=== PATIENT | male | born 1990 | race Caucasian/White ===

== ENCOUNTER 2021-01-03 12:43 | Inpatient (IN) | payer BC, SELFPAY ==
[2021-01-03] VITALS (8 sets, daily range): BP systolic 120–147; BP diastolic 77–98; PULSE 74–135; RESP 12–18; TEMP 36.6–36.9; O2SAT 96–100; BMI 32.5
--- NOTE | ~2021-01-03 | XR_ITS ---
EXAMINATION: XR CHEST CLINICAL INFORMATION: Leukocytosis COMPARISON: None TECHNIQUE: 2 views of the chest were obtained. FINDINGS: Cardiac silhouette is normal in size. The lungs are adequately aerated. There is mild asymmetrical elevation right hemidiaphragm. No lobar consolidation. No pleural effusion or pneumothorax. No acute osseous abnormality. XR/XR chest 2V IMPRESSION: No acute pulmonary pathology.
--- NOTE | 2021-01-03 14:03 | ED_ITS ---
HPI - General Adult General Chief complaint: Nausea/Vomiting/Diarrhea Stated complaint: muscle pain Time Seen by Provider: 01/03/21 13:46 Source: patient Mode of arrival: ambulatory Limitations: no limitations History of Present Illness HPI narrative: 30-year-old male previously healthy here with complaints of gener alized weakness, muscle pain, cramps, nausea, vomiting since yesterday. Patient tells me that yesterday he was on the elliptical for about an hour and then went for a 2-3 mile walk (total work out time approximately 4hrs) On the way home from his walk he started to feel weak and had an episode of vomiting. He has had several episodes of vomiting since. He feels like his muscles are sore and cramping. Denies abdominal pain, diarrhea. Related Data Home Medications Medication Instructions Recorded Confirmed No Known Home Meds 01/03/21 01/03/21 Allergies Allergy/AdvReac Type Severity Reaction Status Date / Time DUST Allergy Unknown SNEEZING, Uncoded 06/26/20 15:55 RED EYES Review of Systems Review of Systems: Yes all other systems are reviewed and are negative Constitutional: Constitutional: Reports no additional constitutional complaints, Denies body ache(s), Denies chills, Denies fever(s), Denies heada charlene(s) and Reports weakness Eyes: Eyes: Reports no additional eye complaints and Denies change in vision ENT: Reports system reviewed and no additional complaints, except as documented, Denies dizziness, Denies headache(s), Denies nasal congestion, Denies nasal discharge and Denies neck pain Cardiovascular: Cardiovascular: Reports no additional cardiovascular complaints, Denies chest pain, Denies leg edema and Denies dyspnea Respiratory: Respiratory: Reports no additional respiratory complaints, Denies cough and Denies dyspnea Gastrointestinal: Gastrointestinal: Reports no additional gastrointestinal complaints, Denies abdominal pain, Denies diarrhea, Reports nausea and Reports vomiting Genitourinary: Genitourinary: Denies urinary incontinence Musculoskeletal: Musculoskeletal: Reports no additional musculoskeletal complaints, Denies back pain, Denies arthralgias, Denies joint swelling, Reports muscle cramps, Denies neck pain, Denies numbness and Denies tingling Integumentary/Breasts: Skin/Breast: Reports system reviewed and no additional complaints, except as docu and Denies rash Neurologic: Reports system reviewed and no additional complaints, except as documented, Denies Abnormal speech present, Denies dizziness, Denies headache(s), Denies numbness, Denies tingling and Reports weakness PMFSH Past Medical History Attestation statement: The following information was validated with the patient. Source: old records reviewed and nursing notes reviewed Medical History Asthma Social History Social History Alcohol intake: never Smoking Status: Never smoker Use of substances other than those prescribed or required for medical reasons: No Advance Directives: No Advance Directives Information Provided: Yes Physical Exam Vital Signs: Vital Signs: Last Vital Signs Temp 98.1 F 01/03/21 14:20 Pulse 74 01/03/21 17:43 Resp 16 01/03/21 17:43 BP 131/98 H 01/03/21 17:43 Pulse Ox 98 01/03/21 17:43 Body Mass Index 32.5 Const: General: cooperative, healthy appearing, comfortable and no acute distress Orientation/consciousness: patient oriented x3 Limitations: no l imitations HENMT: Head: Yes normal to inspection Ears: hearing grossly normal bilaterally General nose exam: Normal external nose present Face and sinus: Yes normal facial exam Mouth: Normal oral and palatal mucosa present Throat: Yes posterior oropharynx normal Eyes: General: appearance normal, both eyes and all related structures Pupils: Equal, round and reactive pupils present Neck: Neck: Yes normal visual inspection Chest: Chest palpation & inspection: normal inspection of the chest Resp: Effort & Inspection: normal respiratory effort Auscultation: clear to auscultation bilaterally Cardio: Rate: regular rate Rhythm: regular rhythm Peripheral pulses: Peripheral pulses 2+ throughout GI: Inspection: Yes normal to inspection Palpation (GI): Soft to palpation and nontender Auscultation: normal bowel sounds Back/Spine/Pelvis: Thoracic/Lumbar Spine: thoracic and lumbar spine normal to inspection Skin: General skin exam: no rashes or lesions noted Neuro: General: patient oriented x3, no focal motor deficits and normal sensation to monofilament Cranial nerves: Yes Equal, round and reactive pupils present Cognition (Neuro): normal cognition Speech: No Abnormal speech present Gait exam (Neuro): Normal gait present Motor exam (neuro): 5/5 motor strength present throughout Extrem: General: Yes normal to inspection Course Course Course Narrative: 30-year-old male here with nausea, vomiting, generalized weakness, muscle cramps after working out yesterday. No abdominal pain, abdomen soft and benign. Will need labs, UA, orthostatics, EKG. 1620-+orthostatics. Leukocytosis likely secondary to dehydration and vomiting. However, will add blood cultures, lactic acid, CXR, COVID screen. Acute renal failure, elevated CK consistent with rhabdomyolysis. Likely from exertion. Wi ll add a drug screen. NSB ordered. 1630-discussed with medicine team Dr. Braga who tells me patient will be admitted when there is available staff to admit. 1930-Discussed with Dr Astudillo who will accept admission. Medical Decision Making MDM Narrative Medical decision making narrative: Rhabdomyolysis, dehydration, electrolyte abnormality Medical Records Medical records reviewed: Yes I reviewed the patient's medical records. Lab Data Lab results reviewed: Yes I reviewed the patient's lab results. Result diagrams: 01/03/21 15:21 01/03/21 15:21 Labs: Lab Results 01/03/21 01/03/21 01/03/21 Range/Units 15:21 15:21 16:02 WBC 33.5 H* (4.8-10.8) X10*3/uL RBC 5.75 (4.60-5.80) X10*6/uL Hgb 17.9 (14.0-18.0) g/dl Hct 51.0 (42-52) % MCV 88.7 (80-98) fL MCH 31.1 (27.0-33.0) pg MCHC 35.1 (31.0-36.0) g/dl RDW 12.7 (11.0-16.0) % Plt Count 338 (160-400) X10*3/uL MPV 11.3 (9.4-12.4) fL Immature Gran % (Auto) 0.8 H (0.0-0.4) % Neut % (Auto) 87.1 H (45-73) % Lymph % (Auto) 4.3 L (20-40) % [place] % (Auto) 7.6 (2-11) % Eos % (Auto) 0.0 (0-4) % Baso % (Auto) 0.2 (0-2) % Lymph # (Auto) 1.4 (1.2-4.9) X10*3/uL [place] # (Auto) 2.6 H (0.1-1.2) X10*3/uL Eos # (Auto) 0.0 (0.0-0.4) X10*3/uL Baso # (Auto) 0.1 (0.0-0.2) X10*3/uL Abs Immat Gran (auto) 0.28 H (0.00-0.03) X10*3/uL Absolute Neuts (auto) 29.1 H (2.0-8.3) X10*3/uL Absolute Nucleated RBC 0.000 (0.0-0.012) X10*3/uL Nucleated RBC % (auto) 0.0 (0.0-0.2) /100WBC Smear Tech's Comments VERIFIED Sodium 136 (135-145) mmol/L Potassium 4.3 (3.3-5.1) mmol/L Chloride 91 L (96-108) mmol/L Carbon Dioxide 18 L (22-29) mmol/L Anion Gap 31 H (12-20) BUN 42 H (9-16) mg/dL Creatinine 4.06 H* (0.5-1.4) mg/dL Estim Creat Clear Calc 33.5 Estimated GFR 17 Random Glucose 145 H (60-115) mg/dL Lactic Acid 2.4 H* (0.5-2.0) mmol/L Calcium 12.2 H (8.4-10.2) mg/dL Magnesium 2.9 H (1.6-2.6) mg/dL Total Bilirubin 1.5 H (0.0-1.0) mg/dL Direct Bilirubin 0.4 (0.0-0.5) mg/dL AST 149 H (5-37) U/L ALT 42 H (0-40) U/L Alkaline Phosphatase 86 (39-117) U/L Total Creatine Kinase 9806 H (38-174) U/L Total Protein 10.1 H (6.5-8.0) g/dL Albumin 5.8 H (3.5-5.0) g/dL Lipase 17 (8-78) U/L Urine Color Urine Appearance Urine pH (5.0-8.0) Ur Specific [place] (1.005-1.025) Urine Protein (NEG-TRACE) MG/DL Urine Glucose (UA) (NEG) MG/DL Urine Ketones (NEG) MG/DL Urine Blood (NEG) Urine Nitrite (NEG) Ur Leukocyte Esterase (NEG) Urine RBC (0) /HPF Urine WBC (0-4) /HPF Ur Squamous Epith Cells /LPF Calcium Oxalate Crystal /LPF Urine Bacteria /LPF Hyaline Casts /LPF Granular Casts /LPF Urine Opiates Screen (Not Detect) Ur Barbiturates Screen (Not Detect) Ur Phencyclidine Scrn (Not Detect) Ur Amphetamines Screen (Not Detect) U Benzodiazepines Scrn (Not Detect) Urine Cocaine Screen (Not Detect) U Marijuana (THC) Screen (Not Detect) COVID-19 (SHAWN) (Negative) COVID-19 Clin Com 01/03/21 01/03/21 01/03/21 Range/Units 16:02 18:53 18:57 WBC (4.8-10.8) X10*3/uL RBC (4.60-5.80) X10*6/uL Hgb (14.0-18.0) g/dl Hct (42-52) % MCV (80-98) fL MCH (27.0-33.0) pg MCHC (31.0-36.0) g/dl RDW (11.0-16.0) % Plt Count (160-400) X10*3/uL MPV (9.4-12.4) fL Immature Gran % (Auto) (0.0-0.4) % Neut % (Auto) (45-73) % Lymph % (Auto) (20-40) % [place] % (Auto) (2-11) % Eos % (Auto) (0-4) % Baso % (Auto) (0-2) % Lymph # (Auto) (1.2-4.9) X10*3/uL [place] # (Auto) (0.1-1.2) X10*3/uL Eos # (Auto) (0.0-0.4) X10*3/uL Baso # (Auto) (0.0-0.2) X10*3/uL Abs Immat Gran (auto) (0.00-0.03) X10*3/uL Absolute Neuts (auto) (2.0-8.3) X10*3/uL Absolute Nucleated RBC (0.0-0.012) X10*3/uL Nucleated RBC % (auto) (0.0-0.2) /100WBC Smear Tech's Comments Sodium (135-145) mmol/L Potassium (3.3-5.1) mmol/L Chloride (96-108) mmol/L Carbon Dioxide (22-29) mmol/L Anion Gap (12-20) BUN (9-16) mg/dL Creatinine (0.5-1.4) mg/dL Estim Creat Clear Calc Estimated GFR Random Glucose (60-115) mg/dL Lactic Acid (0.5-2.0) mmol/L Calcium (8.4-10.2) mg/dL Magnesium (1.6-2.6) mg/dL Total Bilirubin (0.0-1.0) mg/dL Direct Bilirubin (0.0-0.5) mg/dL AST (5-37) U/L ALT (0-40) U/L Alkaline Phosphatase (39-117) U/L Total Creatine Kinase (38-174) U/L Total Protein (6.5-8.0) g/dL Albumin (3.5-5.0) g/dL Lipase (8-78) U/L Urine Color YELLOW Urine Appearance CLEAR Urine pH 5.5 (5.0-8.0) Ur Specific [place] >= 1.030 H (1.005-1.025) Urine Protein 2+ H (NEG-TRACE) MG/DL Urine Glucose (UA) NEG (NEG) MG/DL Urine Ketones 15 (NEG) MG/DL Urine Blood 3+ H (NEG) Urine Nitrite NEG (NEG) Ur Leukocyte Esterase NEG (NEG) Urine RBC 1-4 (0) /HPF Urine WBC 0-2 (0-4) /HPF Ur Squamous Epith Cells TRACE /LPF Calcium Oxalate Crystal TRACE /LPF Urine Bacteria 1+ /LPF Hyaline Casts 0-2 /LPF Granular Casts 0-2 /LPF Urine Opiates Screen Not Detected (Not Detect) Ur Barbiturates Screen Not Detected (Not Detect) Ur Phencyclidine Scrn Not Detected (Not Detect) Ur Amphetamines Screen Not Detected (Not Detect) U Benzodiazepines Scrn Not Detected (Not Detect) Urine Cocaine Screen Not Detected (Not Detect) U Marijuana (THC) Screen POSITIVE H (Not Detect) COVID-19 (SHAWN) Negative (Negative) COVID-19 Clin Com See Note Imaging Data Chest x-ray: Attestation: I personally reviewed and interpreted this imaging study as follows: Radiologist's impression: EXAMINATION: XR CHEST CLINICAL INFORMATION: Leukocytosis COMPARISON: None TECHNIQUE: 2 views of the chest were obtained. FINDINGS: Cardiac silhouette is normal in size. The lungs are adequately aerated. There is mild asymmetrical elevation right hemidiaphragm. No lobar consolidation. No pleural effusion or pneumothorax. No acute osseous abnormality. XR/XR chest 2V IMPRESSION: No acute pulmonary pathology. ECG Data Attestation: I personally reviewed and interpreted this ECG as follows: Interpretation: Normal sinus rhythm with a rate of 78, normal DC, normal QRS, normal QT Discharge Plan Discharge Clinical Impression: Acute renal failure, Acute renal failure due to rhabdomyolysis, Leukocytosis Patient Disposition: Admitted As Inpatient
[2021-01-03 15:29] LABS: Basophils Absolute Auto 0.1 X10*3/uL (0.0-0.2); Basophils Percent Auto 0.2 % (0-2); Hemoglobin 17.9 g/dl (14.0-18.0); Imm Gran Pct Auto 0.8 % (0.0-0.4); MANUAL DIFF FLAG SCAN; SCAN SMEAR FLAG 1
[2021-01-03 15:37] LABS: Imm Gran Abs Auto 0.28 X10*3/uL (0.00-0.03); Lymphocytes Absolute Auto 1.4 X10*3/uL (1.2-4.9); Lymphocytes Percent Auto 4.3 % (20-40); Mean Corpuscular HGB Conc 35.1 g/dl (31.0-36.0); Mean Corpuscular Hemoglobin 31.1 pg (27.0-33.0); Mean Corpuscular Volume 88.7 fL (80-98); Mean Platelet Volume 11.3 fL (9.4-12.4); Monocytes Absolute Auto 2.6 X10*3/uL (0.1-1.2); Monocytes Percent Auto 7.6 % (2-11); Neutrophils Absolute Auto 29.1 X10*3/uL (2.0-8.3); Neutrophils Percent Auto 87.1 % (45-73); Platelet Count 338 X10*3/uL (160-400); Red Blood Count 5.75 X10*6/uL (4.60-5.80); Red Cell Distribution Width 12.7 % (11.0-16.0)
[2021-01-03 15:41] LABS: White Blood Count 33.5 X10*3/uL (4.8-10.8)
[2021-01-03 15:49] LABS: SLIDE REVIEW VERIFIED
[2021-01-03] MEDS: 0.9 % Sodium Chloride 2,500 ML 999 ML IV (15:52)
[2021-01-03] MEDS: ondansetron HCL 4 MG/2 ML VIAL IVPUSH (15:52)
[2021-01-03 16:08] LABS: Alanine Aminotransferase 42 U/L (0-40); Albumin Level 5.8 g/dL (3.5-5.0); Alkaline Phosphatase 86 U/L (39-117); Anion Gap 31 (12-20); Aspartate Amino Transferase 149 U/L (5-37); Bilirubin Direct 0.4 mg/dL (0.0-0.5); Bilirubin Total 1.5 mg/dL (0.0-1.0); Blood Urea Nitrogen 42 mg/dL (9-16); Calcium 12.2 mg/dL (8.4-10.2); Carbon Dioxide 18 mmol/L (22-29); Chloride 91 mmol/L (96-108); Creatinine Clr Calc Pharmacy 33.5; Estimated Glomerular Filt Rate 17; Glucose Random 145 mg/dL (60-115); Lipase 17 U/L (8-78); Magnesium 2.9 mg/dL (1.6-2.6); Potassium 4.3 mmol/L (3.3-5.1); Sodium 136 mmol/L (135-145); Total Protein 10.1 g/dL (6.5-8.0)
--- NOTE | 2021-01-03 16:11 | PC.NURSE ---
Pt reports vomiting x 2 days and body pain. Skin is reddend, sun burned. Pt at times diaphoretic with vomiting episodes. Medicated as charted.
[2021-01-03 16:27] LABS: COVID-19 Test Negative (Negative); IDNOW Serial# 9DD0AD1C
[2021-01-03 16:53] LABS: Lactic Acid 2.4 mmol/L (0.5-2.0)
--- NOTE | 2021-01-03 17:52 | PC.NURSE ---
Pt feeling better, no longer daphoretic but vomiting approx 20 min ago. Pt also reporting heartburn, pepcid to be ordered. Pt did not void at this time, bladder scan showing 70ml. Plan to complete all 2500ml and then bladder scan again if pt unable to void in urinal.
[2021-01-03 18:07] LABS: Reflex Lactate? Lactic Acid Added
[2021-01-03] MEDS: Famotidine/PF 20 MG/2 ML VIAL IVPUSH (18:13)
--- NOTE | 2021-01-03 19:02 | PC.NURSE ---
Pt voided about 200 ml of urine into urinal
[2021-01-03 19:09] LABS: Glucose Urine UA NEG (NEG); Leukocyte Esterase Urine NEG (NEG); Nitrite Urine NEG (NEG); PH 5.5 (5.0-8.0); Specific Gravity - Urine >= 1.030 (1.005-1.025); Urine Blood 3+ (NEG); Urine Ketones 15 MG/DL (NEG); Urine Protein 2+ MG/DL (NEG-TRACE)
[2021-01-03 19:17] LABS: ~Lactic Acid-LAB USE ONLY 1.3 mmol/L (0.5-2.0)
[2021-01-03 19:17] LABS: Appearance Urine CLEAR; Color Urine YELLOW
[2021-01-03 19:24] LABS: Amphetamine Screen Urine Not Detected (Not Detect); Barbiturates, Urine Not Detected (Not Detect); Benzodiazepines Screen Urine Not Detected (Not Detect); Cannabinoid Screen Urine POSITIVE (Not Detect); Cocaine Screen Urine Not Detected (Not Detect); Opiate Screen Urine Not Detected (Not Detect); Phencyclidine Screen Urine Not Detected (Not Detect)
[2021-01-03 19:30] LABS: WBC Urine 0-2 /HPF (0-4)
[2021-01-03 19:31] LABS: Bacteria Urine 1+ /LPF; Calcium Oxalate Crystals Urine TRACE /LPF; Granular Casts Urine 0-2 /LPF; Hyaline Casts Urine 0-2 /LPF; Squamous Epithelial Cell Urine TRACE /LPF
--- NOTE | 2021-01-03 20:18 | PM.IMHP ---
History of Present Illness Date of Service: 01/03/21 Chief Complaint: Lightheadedness, vomiting, muscle spasm This is a 30-year-old male with no significant past medical history who presents to the hospital with complaints of muscle spasm dizziness, and vomiting. Patient reports that his symptoms started the day prior to presentation, after he worked out about 4 days with very minimal water intake. He usually does not work every day, yesterday was feeling good and worked up for 4 hours straight. He started developing muscle spasm, attention, and cramping, is also lightheadedness, nausea and vomiting, no diarrhea, he noticed decreased urine output. He has no constipation, no chest pain, no shortness of breath. No lower extremity edema. No weakness numbness or tingling. To the ED hemodynamically stable with a heart rate of 103, temp of 98, blood pressure 142/90, WBC count 33.5, hemoglobin of 17.9, platelets 338, sodium 136, potassium 4.3, chloride of 91, BUN of 42, creatinine of 4.06, lactic acid of 2.4, magnesium of 2.9, calcium of 12.2, AST of 149, ALT of 42, CPK of 9806, total protein of 10.1, UA positive for blood and proteins. UDS positive for marijuana, COVID-19 negative, chest x-ray unremarkable Past medical history as below and confirmed with patient Review of Systems Review of Systems: Yes all other systems are reviewed and are negative [facility] Medical History (Updated 01/03/21 @ 20:23 by Katie Astudillo MD) Asthma Pertinent family history: Does not know Surgical History (Updated 01/03/21 @ 20:21 by Katie Astudillo MD) History of shoulder surgery Social History (Updated 01/03/21 @ 20:22 by Katie Astudillo MD) Alcohol intake: never Smoking Status: Current every day smoker Tobacco Type: Cigarette Cigarettes Per Day: 15 Use of substances other than those prescribed or required for medical reasons: Yes Substance Use Type: Marijuana Advance Directives: No Advance Directives Information Provided: Yes Meds Allergies Allergy/AdvReac Type Severity Reaction Status Date / Time DUST Allergy Unknown SNEEZING, Uncoded 06/26/20 15:55 RED EYES Active Medications: Current Medications Generic Name Dose Route Start Last Admin Trade Name Freq PRN Reason Stop Dose Admin Pharmacy Consult 1 each 01/03/21 16:41 Consult Rx Perform Med Rec MISCELLANE ONCE PRN Consult order Home Medications Medication Instructions Recorded Confirmed Last Taken Type No Known Home Meds 01/03/21 01/03/21 Unknown History Physical Exam Vital Signs and Narrative: Vital Signs: Last Vital Signs Temp 98.1 F 01/03/21 14:20 Pulse 74 01/03/21 17:43 Resp 16 01/03/21 17:43 BP 131/98 H 01/03/21 17:43 Pulse Ox 98 01/03/21 17:43 Body Mass Index 32.5 Const: General: cooperative and no acute distress Orientation/consciousness: patient oriented x3 Eyes: General: appearance normal, both eyes and all related structures Resp: Effort & Inspection: normal respiratory effort and able to speak in complete sentences Cardio: Rate: regular rate Rhythm: regular rhythm GI: Palpation (GI): Soft to palpation Auscultation: normal bowel sounds Skin: General skin exam: no rashes or lesions noted Neuro: General: patient oriented x3 Cognition (Neuro): normal cognition Extrem: General: Yes normal to inspection and Yes no pedal edema Results Labs CBC and Chem 7: 01/03/21 15:21 01/03/21 15:21 Labs: Laboratory Results - last 24 hr 01/03/21 01/03/21 01/03/21 15:21 15:21 16:02 MCV 88.7 MCH 31.1 MCHC 35.1 RDW 12.7 Plt Count 338 MPV 11.3 Immature Gran % (Auto) 0.8 H Neut % (Auto) 87.1 H Lymph % (Auto) 4.3 L [place] % (Auto) 7.6 Eos % (Auto) 0.0 Baso % (Auto) 0.2 Lymph # (Auto) 1.4 [place] # (Auto) 2.6 H Eos # (Auto) 0.0 Baso # (Auto) 0.1 Abs Immat Gran (auto) 0.28 H Absolute Neuts (auto) 29.1 H Absolute Nucleated RBC 0.000 Nucleated RBC % (auto) 0.0 Smear Tech's Comments VERIFIED Anion Gap 31 H Estim Creat Clear Calc 33.5 Estimated GFR 17 Random Glucose 145 H Lactic Acid 2.4 H* Calcium 12.2 H Magnesium 2.9 H Total Bilirubin 1.5 H Direct Bilirubin 0.4 AST 149 H ALT 42 H Alkaline Phosphatase 86 Total Creatine Kinase 9806 H Total Protein 10.1 H Albumin 5.8 H Lipase 17 Urine Color Urine Appearance Urine pH Ur Specific [place] Urine Protein Urine Glucose (UA) Urine Ketones Urine Blood Urine Nitrite Ur Leukocyte Esterase Urine RBC Urine WBC Ur Squamous Epith Cells Calcium Oxalate Crystal Urine Bacteria Hyaline Casts Granular Casts Urine Opiates Screen Ur Barbiturates Screen Ur Phencyclidine Scrn Ur Amphetamines Screen U Benzodiazepines Scrn Urine Cocaine Screen U Marijuana (THC) Screen COVID-19 (SHAWN) COVID-19 [facility] 01/03/21 01/03/21 01/03/21 16:02 18:53 18:57 MCV MCH MCHC RDW Plt Count MPV Immature Gran % (Auto) Neut % (Auto) Lymph % (Auto) [place] % (Auto) Eos % (Auto) Baso % (Auto) Lymph # (Auto) [place] # (Auto) Eos # (Auto) Baso # (Auto) Abs Immat Gran (auto) Absolute Neuts (auto) Absolute Nucleated RBC Nucleated RBC % (auto) Smear Tech's Comments Anion Gap Estim Creat Clear Calc Estimated GFR Random Glucose Lactic Acid Calcium Magnesium Total Bilirubin Direct Bilirubin AST ALT Alkaline Phosphatase Total Creatine Kinase Total Protein Albumin Lipase Urine Color YELLOW Urine Appearance CLEAR Urine pH 5.5 Ur Specific [place] >= 1.030 H Urine Protein 2+ H Urine Glucose (UA) NEG Urine Ketones 15 Urine Blood 3+ H Urine Nitrite NEG Ur Leukocyte Esterase NEG Urine RBC 1-4 Urine WBC 0-2 Ur Squamous Epith Cells TRACE Calcium Oxalate Crystal TRACE Urine Bacteria 1+ Hyaline Casts 0-2 Granular Casts 0-2 Urine Opiates Screen Not Detected Ur Barbiturates Screen Not Detected Ur Phencyclidine Scrn Not Detected Ur Amphetamines Screen Not Detected U Benzodiazepines Scrn Not Detected Urine Cocaine Screen Not Detected U Marijuana (THC) Screen POSITIVE H COVID-19 (SHAWN) Negative COVID-19 [facility] See Note Imaging Radiologist's Impressions: Impressions Chest X-Ray 01/03/21 15:45 IMPRESSION: No acute pulmonary pathology. Assessment and Plan (1) Acute renal failure: Status: Acute (2) Rhabdomyolysis: Status: Acute (3) Leukocytosis: Status: Acute (4) Dehydration: Status: Acute This is a 30-year-old male who presents to the hospital with multiple complaints including lightheadedness, nausea vomiting, as well as muscle cramping after working out for 3 weeks stents of hours found to have YOVANI and elevated CPK # YOVANI - most likely secondary to rhabdomyolysis - will start him on IV fluids - follow BMP and urine output # rhabdomyolysis - secondary to heavy working out and low liquid intake - has YOVANI as a result - will follow BMP, CPK daily # leukocytosis - component of hemoconcentration - no evidence of infection, chest x-ray negative UA negative, no soft tissue infection, afebrile - follow CBC # dehydration - will start him on IV fluids DVT prophylaxis: Early ambulation
--- NOTE | 2021-01-03 21:41 | PC.NURSE ---
pt c/o nausea and wants meds p/t transfer to floor.
--- NOTE | 2021-01-03 22:24 | PC.NURSE ---
FLOOR UNABLE TO TAKE REPORT AT THIS TIME.
[2021-01-03] MEDS: 0.9 % Sodium Chloride Flush 3 ML SYRINGE IVFLUSH (23:13)
[2021-01-03] MEDS: Lactated Ringers 1,000 ML 125 ML IVCONT (23:13)
[2021-01-04 04:00] VITALS: BP 111/65; PULSE 75; RESP 16; TEMP 36.8; O2SAT 97
[2021-01-04 07:13] LABS: Basophils Percent Auto 0.2 % (0-2); Hematocrit 41.1 % (42-52); Hemoglobin 14.1 g/dl (14.0-18.0); Imm Gran Abs Auto 0.16 X10*3/uL (0.00-0.03); Imm Gran Pct Auto 0.7 % (0.0-0.4); Lymphocytes Absolute Auto 1.8 X10*3/uL (1.2-4.9); MANUAL DIFF FLAG SCAN; Mean Corpuscular HGB Conc 34.3 g/dl (31.0-36.0); Mean Corpuscular Hemoglobin 31.5 pg (27.0-33.0); Mean Corpuscular Volume 91.7 fL (80-98); Mean Platelet Volume 11.4 fL (9.4-12.4); Monocytes Absolute Auto 2.4 X10*3/uL (0.1-1.2); Monocytes Percent Auto 10.5 % (2-11); Neutrophils Percent Auto 80.6 % (45-73); Platelet Count 236 X10*3/uL (160-400); Red Blood Count 4.48 X10*6/uL (4.60-5.80); Red Cell Distribution Width 12.9 % (11.0-16.0); SCAN SMEAR FLAG 1; White Blood Count 22.4 X10*3/uL (4.8-10.8)
[2021-01-04] MEDS: Lactated Ringers 1,000 ML 125 ML IVCONT (07:36)
[2021-01-04 07:59] LABS: SLIDE REVIEW VERIFIED
[2021-01-04 08:00] VITALS: BP 143/70; PULSE 64; RESP 16; TEMP 36.8; O2SAT 97
[2021-01-04 08:01] LABS: Anion Gap 19 (12-20); Blood Urea Nitrogen 32 mg/dL (9-16); Calcium 8.5 mg/dL (8.4-10.2); Carbon Dioxide 21 mmol/L (22-29); Chloride 102 mmol/L (96-108); Creatinine Clr Calc Pharmacy 88.5; Estimated Glomerular Filt Rate 53; Glucose Random 104 mg/dL (60-115); Potassium 3.7 mmol/L (3.3-5.1); Sodium 138 mmol/L (135-145)
[2021-01-04 08:44] LABS: C Reactive Protein 4.41 mg/dL (< or = 0.50)
[2021-01-04] MEDS: ondansetron HCL 4 MG/2 ML VIAL IVPUSH ×2 (08:52→20:21)
[2021-01-04] MEDS: Famotidine/PF 20 MG/2 ML VIAL IVPUSH (10:31)
[2021-01-04 12:00] VITALS: BP 143/65; PULSE 61; RESP 18; TEMP 36.2; O2SAT 98
--- NOTE | 2021-01-04 13:29 | P.PNIM_ITS ---
Subjective Subjective Date of Service: 01/04/21 Interval History: c/o N/V, muscle aches no dyspnea but notes mild cough no fever Physical Exam Vital Signs: Vital Signs: Last Vital Signs Temp 97.2 F 01/04/21 12:00 Pulse 61 01/04/21 12:00 Resp 18 01/04/21 12:00 BP 143/65 H 01/04/21 12:00 Pulse Ox 98 01/04/21 12:00 Body Mass Index 32.5 Gen: in no acute distress HEENT: sclera anicteric, moist mucus membranes Neck: supple Lungs: clear to auscultation bilaterally Heart: regular rate and rhythm, no murmurs Abd: soft, non-tender, non-distended Ext: no edema Skin: warm/well-perfused Neuro: alert and oriented x3, no focal findings Psych: appropriate affect Objective Data Current Medications Generic Name Dose Route Start Last Admin Trade Name Freq PRN Reason Stop Dose Admin Acetaminophen 650 mg 01/03/21 22:06 Acetaminophen 325 Mg Tablet PO Q6H PRN Pain, Mild (Pain Scale 1-3) Docusate Sodium 100 mg 01/03/21 22:06 Docusate Sodium 100 Mg Capsule PO DAILY PRN Constipation Famotidine 20 mg 01/04/21 09:01 01/04/21 10:31 Famotidine/Pf 20 Mg/2 Ml Vial IVPUSH 20 mg BID PRN Administration Heartburn Sodium Chloride 1,000 mls @ 150 mls/hr 01/04/21 13:00 Ns IVCONT .Q6H40M [facility] Metoclopramide HCl 5 mg 01/04/21 13:28 Metoclopramide Hcl 10 Mg/2 Ml Vial IVPUSH Q6H PRN N/V unrelieved by Anjel Ondansetron HCl 4 mg 01/03/21 21:41 01/04/21 08:52 Ondansetron Hcl 4 Mg/2 Ml Vial IVPUSH 4 mg Q8H PRN Administration Nausea and Vomiting Pharmacy Consult 1 each 01/03/21 16:41 Consult Rx Perform Med Rec MISCELLANE ONCE PRN Consult order Sodium Chloride 3 ml 01/04/21 00:00 01/04/21 07:37 0.9 % Sodium Chloride Flush 3 Ml Syringe IVFLUSH Not Given QSHIFT [facility] Labs CBC & Chem 7: 01/04/21 06:26 03/28/21 06:26 Labs: Laboratory Results - last 24 hr 01/03/21 01/03/21 01/03/21 15:21 15:21 16:02 WBC 33.5 H* RBC 5.75 Hgb 17.9 Hct 51.0 MCV 88.7 MCH 31.1 MCHC 35.1 RDW 12.7 Plt Count 338 MPV 11.3 Immature Gran % (Auto) 0.8 H Neut % (Auto) 87.1 H Lymph % (Auto) 4.3 L [place] % (Auto) 7.6 Eos % (Auto) 0.0 Baso % (Auto) 0.2 Lymph # (Auto) 1.4 [place] # (Auto) 2.6 H Eos # (Auto) 0.0 Baso # (Auto) 0.1 Abs Immat Gran (auto) 0.28 H Absolute Neuts (auto) 29.1 H Absolute Nucleated RBC 0.000 Nucleated RBC % (auto) 0.0 Smear Tech's Comments VERIFIED Sodium 136 Potassium 4.3 Chloride 91 L Carbon Dioxide 18 L Anion Gap 31 H BUN 42 H Creatinine 4.06 H* Estim Creat Clear Calc 33.5 Estimated GFR 17 Random Glucose 145 H Lactic Acid 2.4 H* Lactic Acid Fup @ 2Hr Calcium 12.2 H Magnesium 2.9 H Total Bilirubin 1.5 H Direct Bilirubin 0.4 AST 149 H ALT 42 H Alkaline Phosphatase 86 Total Creatine Kinase 9806 H C-Reactive Protein Total Protein 10.1 H Albumin 5.8 H Lipase 17 Urine Color Urine Appearance Urine pH Ur Specific [place] Urine Protein Urine Glucose (UA) Urine Ketones Urine Blood Urine Nitrite Ur Leukocyte Esterase Urine RBC Urine WBC Ur Squamous Epith Cells Calcium Oxalate Crystal Urine Bacteria Hyaline Casts Granular Casts Urine Opiates Screen Ur Barbiturates Screen Ur Phencyclidine Scrn Ur Amphetamines Screen U Benzodiazepines Scrn Urine Cocaine Screen U Marijuana (THC) Screen COVID-19 (SHAWN) COVID-19 Clin Com 01/03/21 01/03/21 01/03/21 16:02 18:53 18:57 WBC RBC Hgb Hct MCV MCH MCHC RDW Plt Count MPV Immature Gran % (Auto) Neut % (Auto) Lymph % (Auto) [place] % (Auto) Eos % (Auto) Baso % (Auto) Lymph # (Auto) [place] # (Auto) Eos # (Auto) Baso # (Auto) Abs Immat Gran (auto) Absolute Neuts (auto) Absolute Nucleated RBC Nucleated RBC % (auto) Smear Tech's Comments Sodium Potassium Chloride Carbon Dioxide Anion Gap BUN Creatinine Estim Creat Clear Calc Estimated GFR Random Glucose Lactic Acid Lactic Acid Fup @ 2Hr Calcium Magnesium Total Bilirubin Direct Bilirubin AST ALT Alkaline Phosphatase Total Creatine Kinase C-Reactive Protein Total Protein Albumin Lipase Urine Color YELLOW Urine Appearance CLEAR Urine pH 5.5 Ur Specific [place] >= 1.030 H Urine Protein 2+ H Urine Glucose (UA) NEG Urine Ketones 15 Urine Blood 3+ H Urine Nitrite NEG Ur Leukocyte Esterase NEG Urine RBC 1-4 Urine WBC 0-2 Ur Squamous Epith Cells TRACE Calcium Oxalate Crystal TRACE Urine Bacteria 1+ Hyaline Casts 0-2 Granular Casts 0-2 Urine Opiates Screen Not Detected Ur Barbiturates Screen Not Detected Ur Phencyclidine Scrn Not Detected Ur Amphetamines Screen Not Detected U Benzodiazepines Scrn Not Detected Urine Cocaine Screen Not Detected U Marijuana (THC) Screen POSITIVE H COVID-19 (SHAWN) Negative COVID-19 Clin Com See Note 01/03/21 01/04/21 01/04/21 20:51 06:26 06:26 WBC 22.4 H RBC 4.48 L D Hgb 14.1 D Hct 41.1 L MCV 91.7 MCH 31.5 MCHC 34.3 RDW 12.9 Plt Count 236 D MPV 11.4 Immature Gran % (Auto) 0.7 H Neut % (Auto) 80.6 H Lymph % (Auto) 8.0 L [place] % (Auto) 10.5 Eos % (Auto) 0.0 Baso % (Auto) 0.2 Lymph # (Auto) 1.8 [place] # (Auto) 2.4 H Eos # (Auto) 0.0 Baso # (Auto) 0.0 Abs Immat Gran (auto) 0.16 H Absolute Neuts (auto) 18.0 H Absolute Nucleated RBC 0.000 Nucleated RBC % (auto) 0.0 Smear Tech's Comments VERIFIED Sodium 138 Potassium 3.7 Chloride 102 Carbon Dioxide 21 L Anion Gap 19 BUN 32 H Creatinine 1.54 H Estim Creat Clear Calc 88.5 Estimated GFR 53 Random Glucose 104 Lactic Acid Lactic Acid Fup @ 2Hr 1.3 Calcium 8.5 D Magnesium Total Bilirubin Direct Bilirubin AST ALT Alkaline Phosphatase Total Creatine Kinase 7819 H C-Reactive Protein 4.41 H Total Protein Albumin Lipase Urine Color Urine Appearance Urine pH Ur Specific [place] Urine Protein Urine Glucose (UA) Urine Ketones Urine Blood Urine Nitrite Ur Leukocyte Esterase Urine RBC Urine WBC Ur Squamous Epith Cells Calcium Oxalate Crystal Urine Bacteria Hyaline Casts Granular Casts Urine Opiates Screen Ur Barbiturates Screen Ur Phencyclidine Scrn Ur Amphetamines Screen U Benzodiazepines Scrn Urine Cocaine Screen U Marijuana (THC) Screen COVID-19 (SHAWN) COVID-19 Clin Com Impressions Chest X-Ray 01/03/21 15:45 IMPRESSION: No acute pulmonary pathology. Assessment and Plan (1) Rhabdomyolysis: Status: Acute (2) Acute renal failure: Status: Acute Assessment and Plan: hospital d#2 30yo M with asthma presenting with N/V, muscle cramping/aching in context of recent exercise program initiation, admitted for YOVANI due to rhabdomyolysis # YOVANI due to rhabdomyolysis - switch to saline diuresis, follow SCr/CPK which are improving - likely exercise-induced though seems out of proportion to pt's reported activity (running 3-4 mi, biking 30 )- will also recheck COVID-19 PCR # leukocytosis - suspect reactive, recheck CBCd # VTE ppx - SCDs
[2021-01-04] MEDS: Metoclopramide HCl 10 MG/2 ML VIAL 5 MG IVPUSH ×2 (13:33→19:22)
[2021-01-04] MEDS: 0.9 % Sodium Chloride 1,000 ML 150 ML IVCONT ×2 (13:34→19:25)
[2021-01-04 14:11] LABS: Adenovirus PCR Not Detected (Not Detect.); Bordetella parapertussis PCR Not Detected (Not Detect.); Bordetella pertussis PCR Not Detected (Not Detect.); Chlamydia pneumoniae PCR Not Detected (Not Detect.); Coronavirus 229E PCR Not Detected (Not Detect.); Coronavirus HKU1 PCR Not Detected (Not Detect.); Coronavirus NL63 PCR Not Detected (Not Detect.); Coronavirus OC43 PCR Not Detected (Not Detect.); Human metapneumovirus PCR Not Detected (Not Detect.); Influenza A PCR Not Detected (Not Detect.); Influenza B PCR Not Detected (Not Detect.); Mycoplasma pneumoniae PCR Not Detected (Not Detect.); Parainfluenza 1 PCR Not Detected (Not Detect.); Parainfluenza 2 PCR Not Detected (Not Detect.); Parainfluenza 3 PCR Not Detected (Not Detect.); Parainfluenza 4 PCR Not Detected (Not Detect.); RSV PCR Not Detected (Not Detect.); Rhino/Enterovirus PCR Not Detected (Not Detect.); SARS-CoV-2 PCR Not Detected (Not Detect.)
[2021-01-04 15:36] VITALS: BP 127/67; PULSE 62; RESP 14; TEMP 36.4; O2SAT 98
[2021-01-04 16:44] LABS: Glucose Urine UA NEG (NEG); Leukocyte Esterase Urine NEG (NEG); Nitrite Urine NEG (NEG); Urine Blood 1+ (NEG); Urine Ketones 15 MG/DL (NEG); Urine Protein NEG (NEG-TRACE)
[2021-01-04 16:49] LABS: Appearance Urine CLEAR; Color Urine STRAW
[2021-01-04 16:54] LABS: Bacteria Urine TRACE /LPF; Granular Casts Urine 0-2 /LPF; RBC Urine 0-2 /HPF (0); Squamous Epithelial Cell Urine TRACE /LPF; Uric Acid Crystals Urine TRACE /LPF; WBC Urine 0-2 /HPF (0-4)
[2021-01-04 19:49] VITALS: BP 114/60; PULSE 75; RESP 14; TEMP 37.8; O2SAT 95
[2021-01-04 23:28] VITALS: BP 115/52; PULSE 69; RESP 20; TEMP 36.6; O2SAT 94
[2021-01-05] MEDS: Metoclopramide HCl 10 MG/2 ML VIAL 5 MG IVPUSH ×2 (01:43→09:20)
[2021-01-05] MEDS: 0.9 % Sodium Chloride 1,000 ML 150 ML IVCONT ×3 (01:48→16:16)
[2021-01-05 03:28] VITALS: BP 107/52; RESP 20; TEMP 36.3; O2SAT 96
[2021-01-05] MEDS: Famotidine/PF 20 MG/2 ML VIAL IVPUSH (03:51)
[2021-01-05] MEDS: ondansetron HCL 4 MG/2 ML VIAL IVPUSH ×2 (06:20→17:09)
[2021-01-05 06:38] LABS: Basophils Percent Auto 0.3 % (0-2); Eosinophils Percent Auto 0.1 % (0-4); Hematocrit 38.4 % (42-52); Hemoglobin 12.7 g/dl (14.0-18.0); Imm Gran Abs Auto 0.07 X10*3/uL (0.00-0.03); Imm Gran Pct Auto 0.6 % (0.0-0.4); Lymphocytes Absolute Auto 1.7 X10*3/uL (1.2-4.9); Lymphocytes Percent Auto 14.6 % (20-40); MANUAL DIFF FLAG SCAN; Mean Corpuscular HGB Conc 33.1 g/dl (31.0-36.0); Mean Corpuscular Volume 93.7 fL (80-98); Mean Platelet Volume 11.3 fL (9.4-12.4); Monocytes Absolute Auto 1.7 X10*3/uL (0.1-1.2); Monocytes Percent Auto 14.6 % (2-11); Neutrophils Absolute Auto 8.3 X10*3/uL (2.0-8.3); Neutrophils Percent Auto 69.8 % (45-73); Platelet Count 227 X10*3/uL (160-400); Red Cell Distribution Width 12.5 % (11.0-16.0); SCAN SMEAR FLAG 1; White Blood Count 11.9 X10*3/uL (4.8-10.8)
[2021-01-05 07:30] LABS: Alanine Aminotransferase 51 U/L (0-40); Albumin Level 4.1 g/dL (3.5-5.0); Alkaline Phosphatase 52 U/L (39-117); Anion Gap 15 (12-20); Aspartate Amino Transferase 159 U/L (5-37); Bilirubin Total 0.8 mg/dL (0.0-1.0); Blood Urea Nitrogen 16 mg/dL (9-16); Calcium 8.3 mg/dL (8.4-10.2); Carbon Dioxide 26 mmol/L (22-29); Chloride 102 mmol/L (96-108); Creatinine Clr Calc Pharmacy 136.4; Estimated Glomerular Filt Rate > 60; Glucose Random 107 mg/dL (60-115); Potassium 4.2 mmol/L (3.3-5.1); Sodium 139 mmol/L (135-145); Total Protein 6.5 g/dL (6.5-8.0)
[2021-01-05 07:49] LABS: SLIDE REVIEW VERIFIED
[2021-01-05 08:00] VITALS: BP 142/72; PULSE 57; RESP 17; TEMP 36.7; O2SAT 98
--- NOTE | 2021-01-05 11:17 | MHC.CM.PN ---
Addendum entered by Glenna Markham 01/05/21 11:29: ANTICIPATE DISCHARGE HOME NO SERVICES 1-2 DAYS PER HSPITLAIST Original Note: nurse wound care technician note electronic medical record reviewed. case discussed on multiple disciplinary rounds. met with patient lives alone, currently out of work secondary to work related disbility. invlving his shoulder . he is active independent in all adls and mobility with no device, he has no vn services in the home nor durable medical equipment, he uses the [facility] and d3nies any financial concerns about obtaining his current or new medications, he confirmed his pcp dr shane lofton, continues to smoke , he reported having increasing anxiety , and would like to talk with some one regarding this,([facility] EDUCATED ABOUT THE IMPORTANCE OF HAVING A HEALTH CARE PROXY , HE IS THINKING ABOUT WHOM HE WOULD ASK AND WILL GET BACK TO CASE MANAGEMENT DISCHARGE PLAN E NO SERVICES PCP YNES DREW -PATIENT TO [facility] FOLLW UP TRANSPORTATION PATIENT TO SELF ARRANGE..
[2021-01-05 11:54] VITALS: BP 152/80; PULSE 66; RESP 17; TEMP 36.7; O2SAT 66
--- NOTE | 2021-01-05 12:22 | HO.PM.IMPN ---
Subjective Subjective Date of Service: 02/07/21 Interval History: Seen in f/u for rhabdo, c/o N/V, muscle aches, cpk in 7Ks Review of Systems Gen: no fever Resp: no sob, no cough CV: no chest, no GATICA, no leg edema GI: + n/v, no abd pain Neuro: No confusion Physical Exam Vital Signs: Vital Signs: Last Vital Signs Temp 98.0 F 01/05/21 11:54 Pulse 66 01/05/21 11:54 Resp 17 01/05/21 11:54 BP 152/80 H 01/05/21 11:54 Pulse Ox 66 L 01/05/21 11:54 Body Mass Index 32.5 Gen: in no acute distress HEENT: sclera anicteric, moist mucus membranes Neck: supple Lungs: clear to auscultation bilaterally Heart: regular rate and rhythm, no murmurs Abd: soft, non-tender, non-distended Ext: no edema Skin: warm/well-perfused Neuro: alert and oriented x3, no focal findings Psych: appropriate affect Objective Data Current Medications Generic Name Dose Route Start Last Admin Trade Name Rudiq PRN Reason Stop Dose Admin Acetaminophen 650 mg 01/03/21 22:06 Acetaminophen 325 Mg Tablet PO Q6H PRN Pain, Mild (Pain Scale 1-3) Docusate Sodium 100 mg 01/03/21 22:06 Docusate Sodium 100 Mg Capsule PO DAILY PRN Constipation Famotidine 20 mg 01/04/21 09:01 01/05/21 03:51 Famotidine/Pf 20 Mg/2 Ml Vial IVPUSH 20 mg BID PRN Administration Heartburn Sodium Chloride 1,000 mls @ 150 mls/hr 01/04/21 13:00 01/05/21 08:14 Ns IVCONT 150 mls/hr .Q6H40M [place] Administration Metoclopramide HCl 5 mg 01/04/21 13:28 01/05/21 09:20 Metoclopramide Hcl 10 Mg/2 Ml Vial IVPUSH 5 mg Q6H PRN Administration N/V unrelieved by Anjel Ondansetron HCl 4 mg 01/03/21 21:41 01/05/21 06:20 Ondansetron Hcl 4 Mg/2 Ml Vial IVPUSH 4 mg Q8H PRN Administration Nausea and Vomiting Pharmacy Consult 1 each 01/03/21 16:41 Consult Rx Perform Med Rec MISCELLANE ONCE PRN Consult order Sodium Chloride 3 ml 01/04/21 00:00 01/05/21 08:11 0.9 % Sodium Chloride Flush 3 Ml Syringe IVFLUSH Not Given QSHIFT [facility] Labs CBC & Chem 7: 01/05/21 06:07 01/07/21 11:16 Microbiology Microbiology Results: Microbiology 01/03/21 16:42 Blood - Venous Blood Culture - Preliminary No growth after 24 hours. 01/03/21 16:03 Blood - Venous Blood Culture - Preliminary No growth after 24 hours. Assessment and Plan (1) Rhabdomyolysis: Status: Acute (2) Acute renal failure: Status: Acute Assessment and Plan: hospital d#3 30yo M with asthma presenting with N/V, muscle cramping/aching in context of recent exercise program initiation, admitted for YOVANI due to rhabdomyolysis # YOVANI due to rhabdomyolysis - switch to saline diuresis, follow SCr/CPK which are improving - likely exercise-induced though seems out of proportion to pt's reported activity (running 3-4 mi, biking 30 )- will also recheck COVID-19 PCR # leukocytosis - suspect reactive, almost resolved #N/V--due to Marijuana, antiemetics, hydration, pepcid # VTE ppx - SCDs
[2021-01-05] MEDS: LORazepam 2 MG/ML VIAL 1 MG IVPUSH ×2 (13:02→20:45)
--- NOTE | 2021-01-05 13:27 | MHC.CARE ---
1200: Met with pt at the request of Dr. Beckford. Pt has been experiencing increasing anxiety over the past year. Pt has always struggled with anxiety but reports it has been worsening for a period of approximately a year. Pt requests assistance with locating a therapist. Pt has been referred to [facility].
[2021-01-05 15:35] VITALS: BP 137/77; PULSE 57; RESP 16; TEMP 36.1; O2SAT 97
[2021-01-05 19:31] VITALS: BP 140/77; PULSE 60; RESP 15; TEMP 36.1; O2SAT 98
[2021-01-05 23:31] VITALS: BP 150/73; PULSE 57; RESP 18; TEMP 36.8; O2SAT 98
[2021-01-06] MEDS: 0.9 % Sodium Chloride 1,000 ML 150 ML IVCONT ×3 (00:59→17:52)
[2021-01-06 04:00] VITALS: BP 133/69; PULSE 50; RESP 18; TEMP 36.9; O2SAT 96
[2021-01-06] MEDS: Metoclopramide HCl 10 MG/2 ML VIAL 5 MG IVPUSH (05:03)
[2021-01-06] MEDS: LORazepam 2 MG/ML VIAL 1 MG IVPUSH ×2 (07:15→13:28)
[2021-01-06 08:00] VITALS: BP 122/82; PULSE 92; RESP 18; TEMP 36.8; O2SAT 98
[2021-01-06 08:41] LABS: Anion Gap 13 (12-20); Blood Urea Nitrogen 10 mg/dL (9-16); Calcium 7.9 mg/dL (8.4-10.2); Carbon Dioxide 25 mmol/L (22-29); Chloride 106 mmol/L (96-108); Creatinine Clr Calc Pharmacy 160.4; Estimated Glomerular Filt Rate > 60; Glucose Random 99 mg/dL (60-115); Potassium 3.9 mmol/L (3.3-5.1); Sodium 140 mmol/L (135-145)
[2021-01-06 12:00] VITALS: BP 123/79; PULSE 75; RESP 18; TEMP 36.8; O2SAT 97
--- NOTE | 2021-01-06 15:03 | HO.PM.IMPN ---
Subjective Subjective Date of Service: 01/06/21 Interval History: Rhabdomyolysis Review of Systems Patient denies any chest pain or shortness of breath or abdominal pain or fever chills or any new weakness numbness. Physical Exam Vital Signs: Vital Signs: Last Vital Signs Temp 98.2 F 01/06/21 12:00 Pulse 75 01/06/21 12:00 Resp 18 01/06/21 12:00 BP 123/79 01/06/21 12:00 Pulse Ox 97 01/06/21 12:00 Body Mass Index 32.5 Physical exam: Constitutional: Not in acute distress, slightly anxious Wants to take shower Cvs: rrr, [id number] , no murmur res: clear to auscultation ,no rhonchii or wheezing abd: no rebound or guarding ,nt, bs present. ext pulses present , no cyanosis neuro: axo3 , nonfocal. Objective Data Current Medications Generic Name Dose Route Start Last Admin Trade Name Freq PRN Reason Stop Dose Admin Acetaminophen 650 mg 01/03/21 22:06 Acetaminophen 325 Mg Tablet PO Q6H PRN Pain, Mild (Pain Scale 1-3) Docusate Sodium 100 mg 01/03/21 22:06 Docusate Sodium 100 Mg Capsule PO DAILY PRN Constipation Famotidine 20 mg 01/04/21 09:01 01/05/21 03:51 Famotidine/Pf 20 Mg/2 Ml Vial IVPUSH 20 mg BID PRN Administration Heartburn Sodium Chloride 1,000 mls @ 150 mls/hr 01/04/21 13:00 01/06/21 07:18 Ns IVCONT 150 mls/hr .Q6H40M [place] Administration Lorazepam 1 mg 01/05/21 12:33 01/06/21 13:28 Lorazepam 2 Mg/Ml Vial IVPUSH 1 mg Q6H PRN Administration Anxiety Metoclopramide HCl 5 mg 01/04/21 13:28 01/06/21 05:03 Metoclopramide Hcl 10 Mg/2 Ml Vial IVPUSH 5 mg Q6H PRN Administration N/V unrelieved by Anjel Ondansetron HCl 4 mg 01/03/21 21:41 01/05/21 17:09 Ondansetron Hcl 4 Mg/2 Ml Vial IVPUSH 4 mg Q8H PRN Administration Nausea and Vomiting Pharmacy Consult 1 each 01/03/21 16:41 Consult Rx Perform Med Rec MISCELLANE ONCE PRN Consult order Sodium Chloride 3 ml 01/04/21 00:00 01/06/21 07:21 0.9 % Sodium Chloride Flush 3 Ml Syringe IVFLUSH Not Given QSHIFT [place] Labs CBC & Chem 7: 01/05/21 06:07 01/06/21 07:59 Microbiology Microbiology Results: Microbiology 01/03/21 16:42 Blood - Venous Blood Culture - Preliminary No growth after 48 hours. 01/03/21 16:03 Blood - Venous Blood Culture - Preliminary No growth after 48 hours. Assessment and Plan (1) Rhabdomyolysis: Status: Acute (2) Dehydration: Status: Acute (3) Acute renal failure: Status: Acute Assessment and Plan: hospital d#3 30yo M with asthma presenting with N/V, muscle cramping/aching in context of recent exercise program initiation, admitted for YOVANI due to rhabdomyolysis 1.YOVANI due to rhabdomyolysis - switch to saline diuresis, follow SCr/CPK which are improving thought to be - likely exercise-induced though seems out of proportion to pt's reported activity (running 3-4 mi, biking 30 )- will also recheck COVID-19 PCR 2. leukocytosis- suspect reactive, improved significantly no fever. 3.N/V--due to Marijuana, antiemetics, hydration, pepcid # VTE ppx: he is ambulatory - SCDs
[2021-01-06 15:18] VITALS: BP 133/84; PULSE 53; RESP 14; TEMP 36.3; O2SAT 99
--- NOTE | 2021-01-06 16:19 | PC.NURSE ---
P patient upset wants to be d/c home,states there is nothing Rn can do at this point I-Dr. Salinas notified of the above E Dr. Salinas will come to talk to patient ,patient notified,family at bedside
--- NOTE | 2021-01-06 17:29 | PC.NURSE ---
P patient wants to go outside to smoke I Dr. Salinas at the bedside,oferred nicotine patch,offered nicotine gum E patient refuses nicotine patch or gum
--- NOTE | 2021-01-06 17:32 | PC.NURSE ---
p patient reports using marijuana at home to help with anxiety I Dr. Salinas notified Eawaiting Ativan order
[2021-01-06] MEDS: Famotidine/PF 20 MG/2 ML VIAL IVPUSH (17:54)
[2021-01-06] MEDS: ondansetron HCL 4 MG/2 ML VIAL IVPUSH (18:03)
[2021-01-06] MEDS: LORazepam 2 MG/ML VIAL 1 MG IV (18:05)
[2021-01-06] MEDS: 0.9 % Sodium Chloride Flush 3 ML SYRINGE IVFLUSH (18:06)
[2021-01-06 18:22] VITALS: BP 143/73; PULSE 55; RESP 20
--- NOTE | 2021-01-06 18:30 | PC.NURSE ---
P patient anxious,pushed dinner tray off his table I Rn cleaned food off the floor,called housekeeping to clean the floor,notified kitchen,new dinner provided for patient,medicated with Ativan as ordered,medicated for nausea with Zofran,medicated with Pepecid for c/o heartburn E will monitor and check on patient frequently,[facility] made aware of patient anxiety and need to answer patient call rushing as soon as possible.
[2021-01-06 19:04] VITALS: BP 129/69; PULSE 65; RESP 14; TEMP 36.6; O2SAT 96
--- NOTE | 2021-01-06 21:00 | PC.NURSE ---
Patient sleeping ,resting in bed comfortably,has no complaints at this time,encouraged patient to verbalize his needs as often as he needs to.
[2021-01-07] VITALS: BP 127/78; PULSE 58; RESP 16; TEMP 36.4; O2SAT 95
[2021-01-07] MEDS: 0.9 % Sodium Chloride 1,000 ML 150 ML IVCONT ×2 (00:10→06:35)
[2021-01-07] MEDS: LORazepam 2 MG/ML VIAL 1 MG IVPUSH ×2 (06:39→11:00)
[2021-01-07] MEDS: ondansetron HCL 4 MG/2 ML VIAL IVPUSH (06:39)
[2021-01-07 08:00] VITALS: BP 131/80; PULSE 95; RESP 18; TEMP 36.4; O2SAT 96
--- NOTE | 2021-01-07 10:06 | PC.NURSE ---
[place] for Dr. Salinas to discuss patient. Dr. [place] to chato Salinas
[2021-01-07] MEDS: Metoclopramide HCl 10 MG/2 ML VIAL 5 MG IVPUSH (11:01)
[2021-01-07 11:49] VITALS: BP 118/76; PULSE 90; RESP 18; TEMP 36.3; O2SAT 99
[2021-01-07 11:55] LABS: Anion Gap 13 (12-20); Blood Urea Nitrogen 9 mg/dL (9-16); Calcium 8.7 mg/dL (8.4-10.2); Carbon Dioxide 26 mmol/L (22-29); Chloride 104 mmol/L (96-108); Creatinine Clr Calc Pharmacy 149.8; Estimated Glomerular Filt Rate > 60; Glucose Random 99 mg/dL (60-115); Potassium 4.2 mmol/L (3.3-5.1); Sodium 139 mmol/L (135-145)
[2021-01-07 12:39] LABS: Alanine Aminotransferase 83 U/L (0-40); Albumin Level 4.3 g/dL (3.5-5.0); Alkaline Phosphatase 54 U/L (39-117); Aspartate Amino Transferase 116 U/L (5-37); Bilirubin Direct 0.3 mg/dL (0.0-0.5); Bilirubin Total 0.6 mg/dL (0.0-1.0); Total Protein 6.8 g/dL (6.5-8.0)
--- NOTE | 2021-01-07 12:48 | P.CONNP_ITS ---
History of Present Illness Reason for Consult Consult date: 01/07/21 Chief Complaint Chief complaint: Rhabdo,YOVANI History of Present Illness Narrative: Armando is a 30-year-old male with no significant past medical history who presents to the hospital with complaints of muscle spasm dizziness, and vomiting. Patient reports that his symptoms started the day prior to presentation, after he worked out about 4 days with very minimal water intake. He started developing muscle spasm, attention, and cramping, is also lightheadedness, nausea and vomiting, no diarrhea. He noticed decreased urine output. He has no constipation, no chest pain, no shortness of breath. No lower extremity edema. No weakness numbness or tingling. He was found to have Rhabdomyolysis. Nephrology has been consulted to assist in his clinical care. Review of Systems Review of Systems Yes all other systems are reviewed and are negative PMFSH Past Medical History Medical History (Updated 01/07/21 @ 12:51 by Favio Reyes MD) Asthma Surgical History Surgical History (Updated 01/03/21 @ 20:21 by Katie Astudillo MD) History of shoulder surgery Social History Social History (Updated 01/03/21 @ 20:22 by Katie Astudillo MD) Alcohol intake: never Smoking Status: Current every day smoker Tobacco Type: Cigarette Cigarettes Per Day: 15 Use of substances other than those prescribed or required for medical reasons: Yes Substance Use Type: Marijuana Currently Displaying Signs/Symptoms of Drug Intoxication Withdrawal: No Advance Directives: No Advance Directives Information Provided: Yes Do you have thoughts of harming others: None Do you have a plan to hurt others: No Plan service: No Current occupational status: employed Meds Allergies Allergy/AdvReac Type Severity Reaction Status Date / Time DUST Allergy Unknown SNEEZING, Uncoded 06/26/20 15:55 RED EYES Active Medications: Current Medications Generic Name Dose Route Start Last Admin Trade Name Freq PRN Reason Stop Dose Admin Acetaminophen 650 mg 01/03/21 22:06 Acetaminophen 325 Mg Tablet PO Q6H PRN Pain, Mild (Pain Scale 1-3) Docusate Sodium 100 mg 01/03/21 22:06 Docusate Sodium 100 Mg Capsule PO DAILY PRN Constipation Famotidine 20 mg 01/04/21 09:01 01/06/21 17:54 Famotidine/Pf 20 Mg/2 Ml Vial IVPUSH 20 mg BID PRN Administration Heartburn Sodium Chloride 1,000 mls @ 200 mls/hr 01/04/21 13:00 01/07/21 06:35 Ns IVCONT 150 mls/hr .Q5H [place] Administration Lorazepam 1 mg 01/06/21 17:43 01/07/21 11:00 Lorazepam 2 Mg/Ml Vial IVPUSH 1 mg Q4H PRN Administration Anxiety Metoclopramide HCl 5 mg 01/04/21 13:28 01/07/21 11:01 Metoclopramide Hcl 10 Mg/2 Ml Vial IVPUSH 5 mg Q6H PRN Administration N/V unrelieved by Anjel Ondansetron HCl 4 mg 01/03/21 21:41 01/07/21 06:39 Ondansetron Hcl 4 Mg/2 Ml Vial IVPUSH 4 mg Q8H PRN Administration Nausea and Vomiting Pharmacy Consult 1 each 01/03/21 16:41 Consult Rx Perform Med Rec MISCELLANE ONCE PRN Consult order Sodium Chloride 3 ml 01/04/21 00:00 01/07/21 08:06 0.9 % Sodium Chloride Flush 3 Ml Syringe IVFLUSH Not Given QSHIFT [facility] Home Medications Medication Instructions Recorded Confirmed Last Taken Type No Known Home Meds 01/03/21 01/03/21 Unknown History Physical Exam Vital Signs: Last Vital Signs Temp 97.4 F 01/07/21 11:49 Pulse 90 01/07/21 11:49 Resp 18 01/07/21 11:49 BP 118/76 01/07/21 11:49 Pulse Ox 99 01/07/21 11:49 Body Mass Index 32.5 Const General: No no acute distress Orientation/consciousness: patient oriented x3 Neck Neck: Yes supple Resp Auscultation: diminished lung sounds Cardio Jugular venous distension: no JVD GI Palpation (GI): Soft to palpation Neuro General: patient oriented x3 and moves all extremities Results Lab Results Result Diagrams: 01/05/21 06:07 01/07/21 11:16 Lab results: Chemistry 01/05/21 01/06/21 01/07/21 06:07 07:59 11:16 Sodium 139 140 139 Potassium 4.2 3.9 4.2 Carbon Dioxide 26 25 26 BUN 16 10 9 Creatinine 1.00 0.85 0.91 Calcium 8.3 L 7.9 L 8.7 D Hematology 01/05/21 06:07 WBC 11.9 H Hgb 12.7 L Plt Count 227 Urinalysis 01/04/21 16:33 Urine Color STRAW Urine Appearance CLEAR Urine pH 6.0 Ur Specific [place] 1.020 Urine Protein NEG Urine Glucose (UA) NEG Urine Ketones 15 Urine Blood 1+ H Urine Nitrite NEG Ur Leukocyte Esterase NEG Urine RBC 0-2 Urine WBC 0-2 Ur Squamous Epith Cells TRACE Assessment and Plan (1) Rhabdomyolysis: Problem details: CK improving; Renal functions at baseline Shall check urine cocaine; C/W IV fluids If well could be discharged tomorrow Labs AM. Shall follow up Status: Acute
--- NOTE | 2021-01-07 12:58 | PC.NURSE ---
spoke to phlebotomy after chemistry called me and said they could not add an A1C because they did not have a purple top. Phlebotomy will come up and draw an A1C.
[2021-01-07 13:23] LABS: Estimated Average Glucose 97 mg/dL
--- NOTE | 2021-01-07 13:53 | MHC.CM.PN ---
Addendum entered by Glenna Markham 01/07/21 16:08: PATIENT LEFT AGAINST MEDICAL ADVICE AMA Original Note: NURSE CARE MANAGEMENT NOTE ELECTRONIC MEDICAL RECORD REVIEWED ALONG WITH CASE DISCUSSED WITH STAFF NURSE, AND ON MULTIPLE DISCIPLINARY ROUNDS, SEEN BY PHYSICAL THERAPY AND THEY RECOMMEND SHORT TERM REHAB , PATIENT DOES NOT WANT TO GO TO SHORT TERM REHAB SHE WANTS TO GO HOME AND HAS ASSISTANCE FROM HER S/O PATIENT REPORTS THAT SHE IS [facility] N[facility]ICAL THERAPY , SHE IS ANTICIPATED TO BE DISCHARGED HOME TOMORROW PENDING UROLOGY INPUT DISCHARGE PLAN HOME WITH THE [place] VISITING NURSE FOR NURSING FOR DIAGNOSIS SIGN SYMPTOM MANAGEMENT AND ACTION PLAN OF WHO TO CALL FOR WHAT AND WHEN . PATIENT HAS TWO NEW NEPHROSTOMY TUBES PLACED AND CONNECTED TO [employer] WHICH NEEDS EMPTYING QD, AND MONITORING VNA TO PROVIDED REINFORCEMENT TEACHING OF NEPHROSTOMY TUBE AND MONITORING AND CARE, ALSO FOR HOME PHYSICAL THERAPY PCP YNES DREW PATIENT TO CALL FOR [facility] HOS[facility] DISCHARGE FOLLOW UP TRANSPORTATION SIGNIFICANT OTHER
[2021-01-07] MEDS: Famotidine/PF 20 MG/2 ML VIAL IVPUSH (14:05)
[2021-01-07 15:34] VITALS: BP 130/78; PULSE 80; RESP 18; TEMP 36.8; O2SAT 98
--- NOTE | 2021-01-07 15:54 | P.DS_ITS ---
DS: Providers Provider Date of Service: 01/07/21 Date of admission: 01/03/21 19:52 Date of discharge: 01/07/21 Primary care physician: Vonda Szymanski NP Consults: 01/05/21 11:30 Consult to Care Team Routine Comment: Reason for consultation: PATIENT REQUESTING TO SPEAK TO SOMEONE ABOUT HIS INCREASING ANXIETY 01/07/21 08:05 Consult to Nephrology Routine Consulting Provider: Favio Reyes Reason for consultation: RHABDOMYLYSIS Has provider been notified: No DS: Diagnosis Discharge Diagnosis (1) Rhabdomyolysis: Status: Acute DS: Medications Discharge Medications Home Medications: Home Medications Medication Instructions Recorded Confirmed No Known Home Meds 01/03/21 01/03/21 DS: Summary Hospital Course Hospital Course: 30-year-old male with no significant past medical history who presents to the hospital with complaints of muscle spasm dizziness, and vomiting. Patient reports that his symptoms started the day prior to presentation, after he worked out about 4 days with very minimal water intake. He usually does not work every day, yesterday was feeling good and worked up for 4 hours straight. He started developing muscle spasm, attention, and cramping, is also lightheadedness, nausea and vomiting, no diarrhea, he noticed decreased urine output. He has no constipation, no chest pain, no shortness of breath. No lower extremity edema. No weakness numbness or tingling. To the ED hemodynamically stable with a heart rate of 103, temp of 98, blood pressure 142/90, WBC count 33.5, hemoglobin of 17.9, platelets 338, sodium 136, potassium 4.3, chloride of 91, BUN of 42, creatinine of 4.06, lactic acid of 2.4, magnesium of 2.9, calcium of 12.2, AST of 149, ALT of 42, CPK of 9806, total protein of 10.1, UA positive for blood and proteins. UDS positive for marijuana, COVID-19 negative, chest x-ray unremarkable. Hospital Course problem section : Patient came with rhabdomyolysis, YOVANI, leukocytosis: Probably related to exertion related. Patient was started on IV fluids and subsequently YOVANI improved rhabdomyolysis improving today CPK is 2770 range. also has mild elevation of liver function test probably related to rhabdo. Discuss Nephrology patient needs on hydration but patient decided to leave against medical advise risk of leaving against medical advise discussed in detail. Patient is alert oriented x3. It was told to nearest emergency room and also was told to hydrate himself adequately, as well as follow up with CPK and liver function test levels . Patient was also told to avoid medications that can cause rhabdomyolysis. Above management discussed with the patient in detail length he understand and in agreement with the above plan, time spent 50 minutes and 50% time spent on counseling. Significant findings: As above. Procedures performed: None. Treatment and response: As above. Complications: None. Time Spent with Patient Time attestation: Total time spent providing and/or coordinating discharge services: Discharge coordination time: Greater than 30 minutes Physical Exam Vital Signs: Vital Signs: Last Vital Signs Temp 98.2 F 01/07/21 15:34 Pulse 80 01/07/21 15:34 Resp 18 01/07/21 15:34 BP 130/78 01/07/21 15:34 Pulse Ox 98 01/07/21 15:34 Body Mass Index 32.5 Physical exam: Constitutional: Not in acute distress. Cvs: rrr, [id number] , no murmur res: clear to auscultation ,no rhonchii or wheezing abd: no rebound or guarding ,nt, bs present. ext pulses present , no cyanosis neuro: axo3 , nonfocal. DS: Data Data Completed and Pending Labs on day of discharge: Laboratory Results - last 24 hr 01/05/21 01/07/21 01/07/21 06:07 11:16 11:16 Sodium 139 Potassium 4.2 Chloride 104 Carbon Dioxide 26 Anion Gap 13 BUN 9 Creatinine 0.91 Estim Creat Clear Calc 149.8 Estimated GFR > 60 Random Glucose 99 Estimat Average Glucose 97 Hemoglobin A1c % 5.0 Calcium 8.7 D Total Bilirubin 0.6 Direct Bilirubin 0.3 AST 116 H ALT 83 H Alkaline Phosphatase 54 Total Creatine Kinase 2776 H D Total Protein 6.8 Albumin 4.3 Preliminary micro results at discharge 01/03/21 16:42 Blood Culture - Preliminary Blood - Venous No growth after 48 hours. 01/03/21 16:03 Blood Culture - Preliminary Blood - Venous No growth after 48 hours. Discharge Plan Discharge Patient Disposition: Left Against Medical Advice Referrals: Vonda Szmyanski NP [Primary Care Provider] - Discharge Medications: No Action No Known Home Meds RF: 0 Discharge Orders: Discharge Order (Routine); Ordered 01/07/21 Ordered By: Miesha Salinas Diet: advance to usual diet Activity on Discharge: As tolerated Care Plan Goals: Patient came with rhabdomyolysis, YOVANI, leukocytosis: Probably related to exertion related abnormalities. Patient was started on IV fluids and subsequently YOVANI and rhabdomyolysis improving today CPK is 2700 rang e. Discuss Nephrology patient needs on hydration but patient decided to leave against medical advise risk of leaving against medical advise discussed in detail. It was told to nearest emergency room and also was told to hydrate himself adequately, as well as follow up with CPK and liver function test levels . Health Concerns: As above. Plan of Treatment: As above. Discharge Date/Time: 01/07/21 15:58
== END 2021-01-07 15:58 | disposition left against medical advice (07) | DRG 469 ==
LOC: HO.ED 16:57 → HO.EDOVER 20:06 → HO.S3 21:35
PROVIDERS: Family Medicine; Nurse Practitioner Family; Admitting Provider Internal Medicine; Emergency Provider Emergency Medicine; PCP Nurse Practitioner Family; Visit Provider Internal Medicine
DX: N17.9 Acute kidney failure, unspecified (principal); M62.82 Rhabdomyolysis; E86.0 Dehydration; D72.829 Elevated white blood cell count, unspecified; Z20.822 Contact with and (suspected) exposure to COVID-19
CPT/HCPCS: 36415; 71046; 80048; 80053; 80076; 80307; 81001; 82550; 83036; 83605; 83690; 83735; 85025; 86140; 87040; 87633; 87635; 96374; 96375; 99285; J2060; J2405; J2765

== ENCOUNTER 2021-01-08 16:40 | Emergency (ER) | payer BC, SELFPAY ==
[2021-01-08 17:24] VITALS: BP 131/82; PULSE 68; RESP 20; TEMP 37.3; O2SAT 98; BMI 31.8
[2021-01-08 19:17] VITALS: BP 130/76; PULSE 62; RESP 18; TEMP 36.8; O2SAT 97
== END 2021-01-08 21:23 | disposition left against medical advice (07) ==
PROVIDERS: Emergency Provider Emergency Medicine; PCP Nurse Practitioner Family
DX: R42 Dizziness and giddiness (principal); R11.0 Nausea; F17.210 Nicotine dependence, cigarettes, uncomplicated; F12.90 Cannabis use, unspecified, uncomplicated
CPT/HCPCS: 99283

== ENCOUNTER 2021-01-10 12:50 | Emergency (ER) | payer BC, SELFPAY ==
[2021-01-10 13:00] VITALS: BP 135/90; PULSE 76; RESP 16; TEMP 36.5; O2SAT 96; BMI 31.8
[2021-01-10] MEDS: 0.9 % Sodium Chloride 1,000 ML 999 ML IVCONT ×3 (13:35→15:44)
--- NOTE | 2021-01-10 13:39 | ED.GENADULT ---
HPI - General Adult General Chief complaint: General Medical Stated complaint: WEAKNESS VOMITING DEHYDRATION Time Seen by Provider: 01/10/21 13:16 History of Present Illness HPI narrative: This is a 30 years old male presented to the emergency department complaining of nausea vomiting or inability to keep fluids down. He was recently admitted for dehydration acute renal failure. Onset (ago): day(s) (1) Radiation: non-radiation Severity: moderate Quality: burning Pain Consistency: constant Relieving factors: none Related Data Home Medications Medication Instructions Recorded Confirmed No Known Home Meds 01/03/21 01/03/21 Allergies Allergy/AdvReac Type Severity Reaction Status Date / Time DUST Allergy Unknown SNEEZING, Uncoded 06/26/20 15:55 RED EYES Review of Systems Review of Systems: Yes all other systems are reviewed and are negative Respiratory: Respiratory: Reports no additional respiratory complaints Gastrointestinal: Gastrointestinal: Denies diarrhea, Reports nausea and Reports vomiting Neurologic: Reports system reviewed and no additional complaints, except as documented PMFSH Past Medical History Medical History Asthma Surgical History History of shoulder surgery Social History Social History Alcohol intake: never Smoking Status: Current every day smoker Tobacco Type: Cigarette Cigarettes Per Day: 15 Use of substances other than those prescribed or required for medical reasons: No Substance Use Type: Marijuana Advance Directives: Yes Advance Directives Information Provided: Yes Advance Directives on File: No service: No Current occupational status: employed Physical Exam Vital Signs: Vital Signs: Last Vital Signs Temp 97.7 F 01/10/21 13:00 Pulse 76 01/10/21 13:00 Resp 16 01/10/21 13:00 BP 135/90 H 01/10/21 13:00 Pulse Ox 96 01/10/21 13:00 Body Mass Index 31.8 Const: General: cooperative and healthy appearing Orientation/consciousness: oriented to person, oriented to place, oriented to time and patient oriented x3 HENMT: Head: Yes normal to inspection and Yes No palpable skull fracture present Eyes: General: appearance normal, both eyes and all related structures Visual Villalpando: normal visual villalpando by confrontation Neck: Neck: Yes normal visual inspection and Yes full ROM Chest: Chest palpation & inspection: normal inspection of the chest Resp: Auscultation: clear to auscultation bilaterally Cardio: Jugular venous distension: no JVD Palpation: normal PMI Rate: regular rate Rhythm: regular rhythm GI: Inspection: Yes normal to inspection Palpation (GI): Soft to palpation, not firm, nontender and no guarding Skin: General skin exam: no rashes or lesions noted and elasticity normal Neuro: General: oriented to person, oriented to place, oriented to time, patient oriented x3 and gait normal Course Reevaluation(s) Reevaluation #1: Patient is doing much better he has no abdominal pain, labs were reviewed his CPK is down trending, he iis tolerating p.o. well I anticipate discharge the patient home with antiemetic. Spoke with the patient at length and mother as well as the both comfortable with the plan Time: 16:20 Medical Decision Making Lab Data Result diagrams: 01/10/21 13:35 01/10/21 13:35 Labs: Lab Results 01/10/21 01/10/21 01/10/21 Range/Units 13:35 13:35 13:35 WBC 15.2 H (4.8-10.8) X10*3/uL RBC 5.07 D (4.60-5.80) X10*6/uL Hgb 15.8 D (14.0-18.0) g/dl Hct 46.7 D (42-52) % MCV 92.1 (80-98) fL MCH 31.2 (27.0-33.0) pg MCHC 33.8 (31.0-36.0) g/dl RDW 12.6 (11.0-16.0) % Plt Count 324 D (160-400) X10*3/uL MPV 10.8 (9.4-12.4) fL Immature Gran % (Auto) 0.9 H (0.0-0.4) % Neut % (Auto) 78.1 H (45-73) % Lymph % (Auto) 13.6 L (20-40) % [place] % (Auto) 6.8 (2-11) % Eos % (Auto) 0.3 (0-4) % Baso % (Auto) 0.3 (0-2) % Lymph # (Auto) 2.1 (1.2-4.9) X10*3/uL [place] # (Auto) 1.0 (0.1-1.2) X10*3/uL Eos # (Auto) 0.0 (0.0-0.4) X10*3/uL Baso # (Auto) 0.0 (0.0-0.2) X10*3/uL Abs Immat Gran (auto) 0.14 H (0.00-0.03) X10*3/uL Absolute Neuts (auto) 11.9 H (2.0-8.3) X10*3/uL Absolute Nucleated RBC 0.000 (0.0-0.012) X10*3/uL Nucleated RBC % (auto) 0.0 (0.0-0.2) /100WBC Sodium 137 (135-145) mmol/L Potassium 4.4 (3.3-5.1) mmol/L Chloride 99 (96-108) mmol/L Carbon Dioxide 26 (22-29) mmol/L Anion Gap 16 (12-20) BUN 18 H D (9-16) mg/dL Creatinine 1.43 H (0.5-1.4) mg/dL Estim Creat Clear Calc 94.4 Estimated GFR 58 Random Glucose 159 H D (60-115) mg/dL Calcium 9.6 D (8.4-10.2) mg/dL Total Bilirubin 1.0 (0.0-1.0) mg/dL AST 40 H D (5-37) U/L ALT 68 H (0-40) U/L Alkaline Phosphatase 62 (39-117) U/L Total Creatine Kinase 289 H D (38-174) U/L Total Protein 8.3 H D (6.5-8.0) g/dL Albumin 4.8 (3.5-5.0) g/dL Lipase 47 (8-78) U/L Discharge Plan Discharge Prescriptions: No Action No Known Home Meds RF: 0
[2021-01-10 13:42] LABS: MANUAL DIFF FLAG NO
[2021-01-10 13:43] LABS: Basophils Percent Auto 0.3 % (0-2); Eosinophils Percent Auto 0.3 % (0-4); Hematocrit 46.7 % (42-52); Hemoglobin 15.8 g/dl (14.0-18.0); Imm Gran Abs Auto 0.14 X10*3/uL (0.00-0.03); Imm Gran Pct Auto 0.9 % (0.0-0.4); Lymphocytes Absolute Auto 2.1 X10*3/uL (1.2-4.9); Lymphocytes Percent Auto 13.6 % (20-40); Mean Corpuscular HGB Conc 33.8 g/dl (31.0-36.0); Mean Corpuscular Hemoglobin 31.2 pg (27.0-33.0); Mean Corpuscular Volume 92.1 fL (80-98); Mean Platelet Volume 10.8 fL (9.4-12.4); Monocytes Percent Auto 6.8 % (2-11); Neutrophils Absolute Auto 11.9 X10*3/uL (2.0-8.3); Neutrophils Percent Auto 78.1 % (45-73); Platelet Count 324 X10*3/uL (160-400); Red Blood Count 5.07 X10*6/uL (4.60-5.80); Red Cell Distribution Width 12.6 % (11.0-16.0); White Blood Count 15.2 X10*3/uL (4.8-10.8)
[2021-01-10] MEDS: ondansetron HCL 4 MG/2 ML VIAL IVPUSH (13:51)
[2021-01-10 14:11] LABS: Lipase 47 U/L (8-78)
[2021-01-10 14:13] LABS: Alanine Aminotransferase 68 U/L (0-40); Albumin Level 4.8 g/dL (3.5-5.0); Alkaline Phosphatase 62 U/L (39-117); Anion Gap 16 (12-20); Aspartate Amino Transferase 40 U/L (5-37); Blood Urea Nitrogen 18 mg/dL (9-16); Calcium 9.6 mg/dL (8.4-10.2); Carbon Dioxide 26 mmol/L (22-29); Chloride 99 mmol/L (96-108); Creatinine Clr Calc Pharmacy 94.4; Estimated Glomerular Filt Rate 58; Glucose Random 159 mg/dL (60-115); Potassium 4.4 mmol/L (3.3-5.1); Sodium 137 mmol/L (135-145); Total Protein 8.3 g/dL (6.5-8.0)
[2021-01-10] MEDS: Metoclopramide HCl 10 MG/2 ML VIAL IVPUSH (15:10)
[2021-01-10] MEDS: LORazepam 2 MG/ML VIAL 1 MG IVPUSH (15:10)
[2021-01-10] MEDS: diphenhydrAMINE HCL 50 MG/ML VIAL 25 MG IVPUSH (15:10)
== END 2021-01-10 16:39 | disposition home or self-care (01) ==
PROVIDERS: Emergency Provider Emergency Medicine; PCP Nurse Practitioner Family
DX: R11.2 Nausea with vomiting, unspecified (principal); E86.0 Dehydration; F17.210 Nicotine dependence, cigarettes, uncomplicated; F12.90 Cannabis use, unspecified, uncomplicated
CPT/HCPCS: 36415; 80053; 82550; 83690; 85025; 96361; 96374; 96375; 99284; J1200; J2060; J2405; J2765